=== PATIENT | male | born 1955 | race African-American/Black ===

== ENCOUNTER 2024-01-31 08:40 | Inpatient (IN) | payer OTHER ==
[~2024-01-31] VITALS: Ht 175.3 cm; Wt 71.4 kg
[~2024-01-31 08:40] MED LIST: AEC81 PO; ATOR10 PO; FERS325 PO; FOLI1 PO; GLIP5TAB15 PO; THIA100T78 PO
[2024-01-31 12:00] VITALS: BP 133/80; PULSE 68; RESP 16; O2SAT 97
[2024-01-31] MEDS ORDERED: COMPOUND IV MISC 1 EACH IVSOLN MISC PRN (14:00)
[2024-01-31] MEDS ORDERED: acetaMINOPHEN 650 MG/20.3 ML UDCUP JT PRN (14:00)
[2024-01-31 14:39] LABS: BASOPHILS # (AUTO) 0.04 K/uL (0.00-0.20); BASOPHILS % (AUTO) 0.4 % (0.0-5.0); EOSINOPHILS # (AUTO) 0.09 K/uL (0.00-0.70); HEMATOCRIT 30.9 % (42-54); IMMATURE GRANULOCYTE ABSOLUTE 0.04 K/uL (0-1); LYMPHOCYTES # (AUTO) 2.1 K/uL (1.0-4.8); LYMPHOCYTES % (AUTO) 22.5 % (21.0-51.0); MEAN CORPUSCULAR HEMOGLOBIN 34.2 pg (27.0-33.0); MEAN CORPUSCULAR HGB CONC 33.3 g/dL (32.0-36.0); MEAN CORPUSCULAR VOLUME 102.7 fL (79-99); MONOCYTES # (AUTO) 0.8 K/uL (0.1-1.0); MONOCYTES % (AUTO) 8.3 % (3.0-13.0); NEUTROPHILS # (AUTO) 6.4 K/uL (1.8-7.7); NEUTROPHILS % (AUTO) 67.4 % (40.0-77.0); PLATELET COUNT (AUTO) 196 K/uL (130-400); RED BLOOD CELL COUNT(AUTO) 3.01 MIL/uL (4.50-6.20); RED CELL DISTRIBUTION WIDTH 13.2 % (11.0-15.5); WHITE BLOOD COUNT (AUTO) 9.5 K/uL (4.8-10.8)
[2024-01-31 14:54] LABS: INR 1.01 (0.85-1.15); PROTHROMBIN TIME 10.9 SEC (9.6-11.6)
[2024-01-31 14:55] LABS: PARTIAL THROMBOPLASTIN TIME 22.3 SEC (26.3-35.5)
[2024-01-31 14:58] LABS: CREATININE 0.8 mg/dL (0.5-1.3); POTASSIUM 3.8 mmol/L (3.5-5.1)
[2024-01-31 15:02] LABS: ALBUMIN 2.7 g/dL (3.5-5.0); BILIRUBIN,TOTAL 0.4 mg/dL (0.2-1.0); MAGNESIUM 1.9 mg/dL (1.80-2.40)
[2024-01-31] MEDS: LACTATED RINGERS 1000ML 1,000 ML IV SCH (15:20)
[2024-01-31 16:00] VITALS: BP 151/83; PULSE 94; RESP 16
[2024-01-31] MEDS: INSULIN HUMULIN R 100 UNIT/ML 3ML SQ SCH (16:30)
[2024-01-31] MEDS ORDERED: DIATR MEGLU/DIATRIZOATE SODIUM 30 ML BOTTLE ONE (17:45)
[2024-01-31] MEDS: MEROPENEM 1 GM in 0.9%NACL 100ML 100 ML IVPB SCH (18:14)
[2024-01-31 20:00] VITALS: BP 117/89; PULSE 95; RESP 18
[2024-01-31 20:30] VITALS: O2SAT 98
[2024-01-31 23:53] VITALS: BP 132/56; PULSE 109; RESP 20
[2024-02-01] MEDS: INSULIN HUMULIN R 100 UNIT/ML 3ML SQ SCH
[2024-02-01] MEDS ORDERED: INSLAN SQ (00:31)
[2024-02-01] MEDS ORDERED: QUET25TA36 PO (00:31)
[2024-02-01] MEDS ORDERED: DOXA4TAB3 PO (00:31)
[2024-02-01] MEDS: ONDANSETRON 4MG INJ IVP PRN (03:10)
[2024-02-01 04:00] VITALS: BP 147/84; PULSE 97; RESP 22
[2024-02-01] MEDS: DEXTROSE 50%-WATER 50 ML DISP.SYRIN IV PRN (05:48)
[2024-02-01 05:53] LABS: BASOPHILS # (AUTO) 0.05 K/uL (0.00-0.20); BASOPHILS % (AUTO) 0.4 % (0.0-5.0); EOSINOPHILS # (AUTO) 0.09 K/uL (0.00-0.70); EOSINOPHILS % (AUTO) 0.8 % (0.0-8.0); HEMATOCRIT 31.3 % (42-54); IMMATURE GRANULOCYTE ABSOLUTE 0.04 K/uL (0-1); LYMPHOCYTES # (AUTO) 2.2 K/uL (1.0-4.8); LYMPHOCYTES % (AUTO) 18.2 % (21.0-51.0); MEAN CORPUSCULAR HEMOGLOBIN 34.8 pg (27.0-33.0); MEAN CORPUSCULAR HGB CONC 32.9 g/dL (32.0-36.0); MEAN CORPUSCULAR VOLUME 105.7 fL (79-99); MONOCYTES # (AUTO) 0.8 K/uL (0.1-1.0); MONOCYTES % (AUTO) 6.3 % (3.0-13.0); NEUTROPHILS # (AUTO) 8.8 K/uL (1.8-7.7); PLATELET COUNT (AUTO) 182 K/uL (130-400); RED BLOOD CELL COUNT(AUTO) 2.96 MIL/uL (4.50-6.20); RED CELL DISTRIBUTION WIDTH 13.2 % (11.0-15.5); WHITE BLOOD COUNT (AUTO) 11.9 K/uL (4.8-10.8)
[2024-02-01] MEDS ORDERED: GLUCAGON 1MG KIT 1 MG ML IM PRN (06:00)
[2024-02-01 06:19] LABS: CREATININE 0.9 mg/dL (0.5-1.3); MAGNESIUM 1.7 mg/dL (1.80-2.40); POTASSIUM 3.8 mmol/L (3.5-5.1)
[2024-02-01] MEDS: DEXTROSE 5%-WATER 1,000 ML IV SCH (06:41)
[2024-02-01 08:00] VITALS: BP 120/65; PULSE 85; RESP 18; O2SAT 98
[2024-02-01 10:17] LABS: HEMOGLOBIN A1C 7.5 % (4.0-6.0)
[2024-02-01 12:00] VITALS: BP 125/69; PULSE 94; RESP 18
[2024-02-01] MEDS: PANTOPRAZOLE 40 MG/VIAL IVP SCH (12:47)
[2024-02-01 16:00] VITALS: BP 127/71; PULSE 89; RESP 18
[2024-02-01 20:00] VITALS: BP 116/62; PULSE 85; RESP 20; O2SAT 100
[2024-02-01] MEDS: ENOXAPARIN SODIUM 30 MG/0.3 ML SQ SCH (21:24)
[2024-02-02] VITALS (7 sets, daily range): BP systolic 109–130; BP diastolic 64–74; PULSE 78–89; RESP 16–20; O2SAT 100
[2024-02-02 06:11] LABS: BASOPHILS # (AUTO) 0.04 K/uL (0.00-0.20); BASOPHILS % (AUTO) 0.4 % (0.0-5.0); EOSINOPHILS # (AUTO) 0.16 K/uL (0.00-0.70); EOSINOPHILS % (AUTO) 1.4 % (0.0-8.0); HEMATOCRIT 29.5 % (42-54); IMMATURE GRANULOCYTE ABSOLUTE 0.04 K/uL (0-1); LYMPHOCYTES # (AUTO) 2.7 K/uL (1.0-4.8); LYMPHOCYTES % (AUTO) 24.1 % (21.0-51.0); MEAN CORPUSCULAR HEMOGLOBIN 33.1 pg (27.0-33.0); MEAN CORPUSCULAR HGB CONC 31.5 g/dL (32.0-36.0); MONOCYTES % (AUTO) 8.8 % (3.0-13.0); NEUTROPHILS # (AUTO) 7.3 K/uL (1.8-7.7); NEUTROPHILS % (AUTO) 64.9 % (40.0-77.0); PLATELET COUNT (AUTO) 168 K/uL (130-400); RED BLOOD CELL COUNT(AUTO) 2.81 MIL/uL (4.50-6.20); RED CELL DISTRIBUTION WIDTH 13.2 % (11.0-15.5); WHITE BLOOD COUNT (AUTO) 11.2 K/uL (4.8-10.8)
[2024-02-02 06:30] LABS: ALBUMIN 2.5 g/dL (3.5-5.0); BILIRUBIN,TOTAL 0.6 mg/dL (0.2-1.0); CREATININE 0.8 mg/dL (0.5-1.3); MAGNESIUM 1.6 mg/dL (1.80-2.40); PHOSPHORUS 3.1 mg/dL (2.5-4.9); POTASSIUM 3.4 mmol/L (3.5-5.1); TOTAL PROTEIN, SERUM 6.3 g/dL (6.0-8.3)
[2024-02-02] MEDS: MAGNESIUM 2GM PREMIX 50ML 50 ML IV SCH (06:55)
[2024-02-03] VITALS (7 sets, daily range): BP systolic 106–128; BP diastolic 60–72; PULSE 73–81; RESP 16–20; O2SAT 99–100
[2024-02-03 00:58] LABS: BILIRUBIN,URINE SMALL mg/dL (NEGATIVE); GLUCOSE, URINE (UA) NEGATIVE (NEGATIVE); KETONES,URINE 5 mg/dL (NEGATIVE); LEUKOCYTE ESTERASE ,URINE TRACE Leu/uL (NEGATIVE); NITRATE,URINE NEGATIVE (NEGATIVE); OCCULT BLOOD,URINE LARGE (NEGATIVE); PROTEIN,URINE 30 mg/dL (NEGATIVE); UROBILINOGEN,URINE 0.2 mg/dL (0.2-1.0)
[2024-02-03 01:05] LABS: ADD UA MICROSCOPIC YES; APPEARANCE,URINE SLIGHTLY CLOUDY (CLEAR); COLOR,URINE AMBER (YELLOW)
[2024-02-03 01:12] LABS: RBC,URINE TNTC /HPF (0-1)
[2024-02-03 01:13] LABS: BACTERIA,URINE Rare /HPF (None Seen); SQUAMOUS EPITHELIAL CELL,UR Few /HPF (0-2)
[2024-02-03 05:19] LABS: BASOPHILS # (AUTO) 0.05 K/uL (0.00-0.20); BASOPHILS % (AUTO) 0.7 % (0.0-5.0); EOSINOPHILS # (AUTO) 0.23 K/uL (0.00-0.70); EOSINOPHILS % (AUTO) 3.3 % (0.0-8.0); HEMATOCRIT 26.1 % (42-54); IMMATURE GRANULOCYTE ABSOLUTE 0.01 K/uL (0-1); LYMPHOCYTES # (AUTO) 2.8 K/uL (1.0-4.8); MEAN CORPUSCULAR HEMOGLOBIN 33.6 pg (27.0-33.0); MONOCYTES # (AUTO) 0.5 K/uL (0.1-1.0); MONOCYTES % (AUTO) 7.6 % (3.0-13.0); NEUTROPHILS # (AUTO) 3.5 K/uL (1.8-7.7); NEUTROPHILS % (AUTO) 49.3 % (40.0-77.0); PLATELET COUNT (AUTO) 165 K/uL (130-400); RED BLOOD CELL COUNT(AUTO) 2.56 MIL/uL (4.50-6.20); RED CELL DISTRIBUTION WIDTH 12.9 % (11.0-15.5); WHITE BLOOD COUNT (AUTO) 7.1 K/uL (4.8-10.8)
[2024-02-03 05:38] LABS: ALBUMIN 2.2 g/dL (3.5-5.0); BILIRUBIN,TOTAL 0.7 mg/dL (0.2-1.0); CREATININE 0.7 mg/dL (0.5-1.3); POTASSIUM 3.1 mmol/L (3.5-5.1); TOTAL PROTEIN, SERUM 5.6 g/dL (6.0-8.3)
[2024-02-03] MEDS: POTASSIUM CHLORIDE 20MEQ/100ML 100 ML IV PRN (10:05)
[2024-02-03] MEDS ORDERED: DIATR MEGLU/DIATRIZOATE SODIUM 30 ML BOTTLE ONE (15:03)
[2024-02-04] VITALS (7 sets, daily range): BP systolic 100–120; BP diastolic 58–68; PULSE 52–97; RESP 18–20; O2SAT 95–99
[2024-02-04 04:24] LABS: BASOPHILS # (AUTO) 0.03 K/uL (0.00-0.20); BASOPHILS % (AUTO) 0.5 % (0.0-5.0); EOSINOPHILS # (AUTO) 0.18 K/uL (0.00-0.70); EOSINOPHILS % (AUTO) 2.8 % (0.0-8.0); HEMATOCRIT 26.3 % (42-54); IMMATURE GRANULOCYTE ABSOLUTE 0.02 K/uL (0-1); LYMPHOCYTES # (AUTO) 2.3 K/uL (1.0-4.8); LYMPHOCYTES % (AUTO) 36.2 % (21.0-51.0); MEAN CORPUSCULAR HEMOGLOBIN 34.3 pg (27.0-33.0); MEAN CORPUSCULAR HGB CONC 33.1 g/dL (32.0-36.0); MEAN CORPUSCULAR VOLUME 103.5 fL (79-99); MONOCYTES # (AUTO) 0.6 K/uL (0.1-1.0); NEUTROPHILS # (AUTO) 3.2 K/uL (1.8-7.7); NEUTROPHILS % (AUTO) 51.2 % (40.0-77.0); PLATELET COUNT (AUTO) 152 K/uL (130-400); RED BLOOD CELL COUNT(AUTO) 2.54 MIL/uL (4.50-6.20); WHITE BLOOD COUNT (AUTO) 6.3 K/uL (4.8-10.8)
[2024-02-04 04:45] LABS: CREATININE 0.8 mg/dL (0.5-1.3); PHOSPHORUS 2.4 mg/dL (2.5-4.9); POTASSIUM 3.4 mmol/L (3.5-5.1)
[2024-02-04 04:57] LABS: % IRON SATURATION 15.1 % (30-44)
[2024-02-04] MEDS: INSULIN HUMULIN R 100 UNIT/ML 3ML SQ SCH (20:40)
[2024-02-05] VITALS (9 sets, daily range): BP systolic 99–132; BP diastolic 60–77; PULSE 75–90; RESP 16–17; O2SAT 95–96
[2024-02-05 05:17] LABS: BASOPHILS # (AUTO) 0.03 K/uL (0.00-0.20); BASOPHILS % (AUTO) 0.4 % (0.0-5.0); EOSINOPHILS # (AUTO) 0.13 K/uL (0.00-0.70); EOSINOPHILS % (AUTO) 1.9 % (0.0-8.0); HEMATOCRIT 25.5 % (42-54); IMMATURE GRANULOCYTE ABSOLUTE 0.02 K/uL (0-1); LYMPHOCYTES # (AUTO) 2.1 K/uL (1.0-4.8); LYMPHOCYTES % (AUTO) 31.4 % (21.0-51.0); MEAN CORPUSCULAR HEMOGLOBIN 33.3 pg (27.0-33.0); MEAN CORPUSCULAR HGB CONC 32.9 g/dL (32.0-36.0); MEAN CORPUSCULAR VOLUME 101.2 fL (79-99); MONOCYTES # (AUTO) 0.6 K/uL (0.1-1.0); NEUTROPHILS # (AUTO) 3.8 K/uL (1.8-7.7); PLATELET COUNT (AUTO) 170 K/uL (130-400); RED BLOOD CELL COUNT(AUTO) 2.52 MIL/uL (4.50-6.20); WHITE BLOOD COUNT (AUTO) 6.8 K/uL (4.8-10.8)
[2024-02-05 05:36] LABS: ALBUMIN 2.1 g/dL (3.5-5.0); BILIRUBIN,TOTAL 0.6 mg/dL (0.2-1.0); CREATININE 0.8 mg/dL (0.5-1.3); MAGNESIUM 1.5 mg/dL (1.80-2.40); POTASSIUM 3.2 mmol/L (3.5-5.1); TOTAL PROTEIN, SERUM 5.4 g/dL (6.0-8.3)
[2024-02-05] MEDS ORDERED: MAGNESIUM 2GM PREMIX 50ML 50 ML IV SCH (10:00)
[2024-02-05] MEDS: KCL 20 MEQ ERTAB PO ONE (11:13)
[2024-02-05] MEDS: KCL 20 MEQ ERTAB PO PRN (22:09)
[2024-02-06] VITALS (7 sets, daily range): BP systolic 95–111; BP diastolic 50–71; PULSE 71–92; RESP 16–20; O2SAT 98–99
[2024-02-06] MEDS: POTASSIUM CHLORIDE 10% ELIXIR 20 MEQ/15 ML UDCUP PO PRN (00:25)
[2024-02-06 05:26] LABS: BASOPHILS # (AUTO) 0.05 K/uL (0.00-0.20); BASOPHILS % (AUTO) 0.7 % (0.0-5.0); EOSINOPHILS # (AUTO) 0.12 K/uL (0.00-0.70); EOSINOPHILS % (AUTO) 1.8 % (0.0-8.0); IMMATURE GRANULOCYTE ABSOLUTE 0.02 K/uL (0-1); LYMPHOCYTES # (AUTO) 2.4 K/uL (1.0-4.8); LYMPHOCYTES % (AUTO) 34.5 % (21.0-51.0); MEAN CORPUSCULAR VOLUME 103.1 fL (79-99); MONOCYTES # (AUTO) 0.6 K/uL (0.1-1.0); MONOCYTES % (AUTO) 8.6 % (3.0-13.0); NEUTROPHILS # (AUTO) 3.7 K/uL (1.8-7.7); NEUTROPHILS % (AUTO) 54.1 % (40.0-77.0); PLATELET COUNT (AUTO) 169 K/uL (130-400); RED BLOOD CELL COUNT(AUTO) 2.62 MIL/uL (4.50-6.20); RED CELL DISTRIBUTION WIDTH 13.2 % (11.0-15.5); WHITE BLOOD COUNT (AUTO) 6.9 K/uL (4.8-10.8)
[2024-02-06 05:38] LABS: ALBUMIN 2.1 g/dL (3.5-5.0); BILIRUBIN,TOTAL 0.3 mg/dL (0.2-1.0); CREATININE 0.8 mg/dL (0.5-1.3); MAGNESIUM 1.9 mg/dL (1.80-2.40); PHOSPHORUS 1.5 mg/dL (2.5-4.9); POTASSIUM 4.1 mmol/L (3.5-5.1); TOTAL PROTEIN, SERUM 5.6 g/dL (6.0-8.3)
[2024-02-06] MEDS ORDERED: INSULIN GLARGINE 100 UNITS/ML 10 ML VIAL SQ SCH (17:00)
[2024-02-06] MEDS: ATORVASTATIN 20 MG TABLET PO SCH (20:36)
[2024-02-06] MEDS: QUETIAPINE FUMARATE 25 MG TAB PO SCH (20:36)
[2024-02-06] MEDS: DOXAZOSIN MESYLATE 2 MG TABLET PO SCH (20:37)
[2024-02-06] MEDS ORDERED: NON-FORMULARY MEDICATION 1 EACH (Doxazosin Mesylate 4 MG) PO SCH (21:00)
[2024-02-07] VITALS (8 sets, daily range): BP systolic 97–134; BP diastolic 53–75; PULSE 79–101; RESP 16–19; O2SAT 96
[2024-02-07 05:20] LABS: BASOPHILS # (AUTO) 0.03 K/uL (0.00-0.20); BASOPHILS % (AUTO) 0.4 % (0.0-5.0); EOSINOPHILS % (AUTO) 2.8 % (0.0-8.0); HEMATOCRIT 26.2 % (42-54); IMMATURE GRANULOCYTE ABSOLUTE 0.02 K/uL (0-1); LYMPHOCYTES # (AUTO) 2.6 K/uL (1.0-4.8); LYMPHOCYTES % (AUTO) 36.6 % (21.0-51.0); MEAN CORPUSCULAR HEMOGLOBIN 33.7 pg (27.0-33.0); MEAN CORPUSCULAR HGB CONC 33.6 g/dL (32.0-36.0); MEAN CORPUSCULAR VOLUME 100.4 fL (79-99); MONOCYTES # (AUTO) 0.6 K/uL (0.1-1.0); MONOCYTES % (AUTO) 8.4 % (3.0-13.0); NEUTROPHILS # (AUTO) 3.6 K/uL (1.8-7.7); NEUTROPHILS % (AUTO) 51.5 % (40.0-77.0); PLATELET COUNT (AUTO) 174 K/uL (130-400); RED BLOOD CELL COUNT(AUTO) 2.61 MIL/uL (4.50-6.20); RED CELL DISTRIBUTION WIDTH 13.2 % (11.0-15.5)
[2024-02-07 05:42] LABS: ALBUMIN 2.2 g/dL (3.5-5.0); BILIRUBIN,TOTAL 0.3 mg/dL (0.2-1.0); CREATININE 0.7 mg/dL (0.5-1.3); MAGNESIUM 1.6 mg/dL (1.80-2.40); POTASSIUM 3.9 mmol/L (3.5-5.1); TOTAL PROTEIN, SERUM 5.6 g/dL (6.0-8.3)
[2024-02-07] MEDS ORDERED: NON-FORMULARY MEDICATION 1 EACH (Ferrous Sulfate 325 MG) PO SCH (09:00)
[2024-02-07] MEDS ORDERED: MAGNESIUM 2GM PREMIX 50ML 50 ML IV SCH (09:30)
[2024-02-07] MEDS: GLIPIZIDE 5 MG TABLET PO SCH (09:51)
[2024-02-07] MEDS: THIAMINE HCL 100 MG TABLET PO SCH (09:51)
[2024-02-07] MEDS: FOLIC ACID 1 MG TABLET PO SCH (09:51)
[2024-02-07] MEDS: FERROUS SULFATE 325 MG TABLET.DR PO SCH (09:51)
[2024-02-07] MEDS ORDERED: METOCLOPRAMIDE 10 MG/2 ML VIAL IVP PRN (11:30)
[2024-02-07] MEDS: 0.9%NACL 1000ML 1,000 ML IV SCH (13:48)
[2024-02-08] VITALS (9 sets, daily range): BP systolic 92–134; BP diastolic 54–69; PULSE 82–116; RESP 16–20; TEMP 100.1; O2SAT 96–98
[2024-02-08 05:25] LABS: BASOPHILS # (AUTO) 0.03 K/uL (0.00-0.20); BASOPHILS % (AUTO) 0.3 % (0.0-5.0); EOSINOPHILS # (AUTO) 0.02 K/uL (0.00-0.70); EOSINOPHILS % (AUTO) 0.2 % (0.0-8.0); HEMATOCRIT 26.9 % (42-54); IMMATURE GRANULOCYTE ABSOLUTE 0.04 K/uL (0-1); LYMPHOCYTES # (AUTO) 0.8 K/uL (1.0-4.8); LYMPHOCYTES % (AUTO) 7.7 % (21.0-51.0); MEAN CORPUSCULAR HEMOGLOBIN 33.7 pg (27.0-33.0); MEAN CORPUSCULAR HGB CONC 33.8 g/dL (32.0-36.0); MEAN CORPUSCULAR VOLUME 99.6 fL (79-99); MONOCYTES # (AUTO) 0.5 K/uL (0.1-1.0); MONOCYTES % (AUTO) 5.1 % (3.0-13.0); NEUTROPHILS # (AUTO) 8.9 K/uL (1.8-7.7); NEUTROPHILS % (AUTO) 86.3 % (40.0-77.0); PLATELET COUNT (AUTO) 178 K/uL (130-400); RED CELL DISTRIBUTION WIDTH 13.2 % (11.0-15.5); WHITE BLOOD COUNT (AUTO) 10.3 K/uL (4.8-10.8)
[2024-02-08 05:43] LABS: ALBUMIN 2.3 g/dL (3.5-5.0); BILIRUBIN,TOTAL 0.6 mg/dL (0.2-1.0); CREATININE 0.9 mg/dL (0.5-1.3); MAGNESIUM 1.4 mg/dL (1.80-2.40); PHOSPHORUS 1.3 mg/dL (2.5-4.9); POTASSIUM 3.7 mmol/L (3.5-5.1); TOTAL PROTEIN, SERUM 5.8 g/dL (6.0-8.3)
[2024-02-08] MEDS: acetaMINOPHEN 325 MG TAB ONE (08:16)
[2024-02-08] MEDS: acetaMINOPHEN 325 MG TAB PO PRN (08:16)
[2024-02-08] MEDS ORDERED: KETOROLAC 15MG/ML VIAL (15MG/ML) IV PRN (08:30)
[2024-02-08] MEDS ORDERED: acetaMINOPHEN 325 MG TAB PO PRN (08:30)
[2024-02-08 14:37] LABS: COVID19 (SARS ANTIGEN RAPID) PRESUMPTIVE NEGATIVE (NEGATIVE); INFLUENZA TYPE A Negative For Type A (NEGATIVE); INFLUENZA TYPE B Negative For Type B (NEGATIVE)
[2024-02-08 17:45] LABS: APPEARANCE,URINE CLEAR (CLEAR); BILIRUBIN,URINE NEGATIVE (NEGATIVE); COLOR,URINE LIGHT-YELLOW (YELLOW); GLUCOSE, URINE (UA) NEGATIVE (NEGATIVE); KETONES,URINE NEGATIVE (NEGATIVE); LEUKOCYTE ESTERASE ,URINE NEGATIVE Leu/uL (NEGATIVE); NITRATE,URINE NEGATIVE (NEGATIVE); OCCULT BLOOD,URINE NEGATIVE (NEGATIVE); PROTEIN,URINE NEGATIVE (NEGATIVE); UROBILINOGEN,URINE 0.2 mg/dL (0.2-1.0)
[2024-02-08 17:56] LABS: ADD UA MICROSCOPIC NO
[2024-02-09] VITALS (8 sets, daily range): BP systolic 100–122; BP diastolic 57–70; PULSE 79–93; RESP 17–18; O2SAT 96–97
[2024-02-09 05:01] LABS: HEMATOCRIT 23.3 % (42-54); MEAN CORPUSCULAR HEMOGLOBIN 32.9 pg (27.0-33.0); MEAN CORPUSCULAR VOLUME 99.6 fL (79-99); PLATELET COUNT (AUTO) 158 K/uL (130-400); RED BLOOD CELL COUNT(AUTO) 2.34 MIL/uL (4.50-6.20); RED CELL DISTRIBUTION WIDTH 13.2 % (11.0-15.5); WHITE BLOOD COUNT (AUTO) 9.9 K/uL (4.8-10.8)
[2024-02-09 05:10] LABS: CREATININE 0.7 mg/dL (0.5-1.3); MAGNESIUM 1.7 mg/dL (1.80-2.40); POTASSIUM 3.9 mmol/L (3.5-5.1)
[2024-02-09 06:10] LABS: BAND NEUTROPHILS % (MANUAL) 3 % (0-2); EOSINOPHILS % (MANUAL) 1 % (1-6); LYMPHOCYTES % (MANUAL) 11 % (22-44); MAN.DIFF COMMENT-IMPRESSION MANUAL DIFFERENTIAL; MONOCYTES % (MANUAL) 6 % (2-9); SEGMENTED NEUTROPHILS % 79 % (40-70); TOTAL CELLS COUNTED 100
[2024-02-09 06:11] LABS: PLATELET MORPHOLOGY COMMENT ADEQUATE; WBC MORPHOLOGY VACUOLATION 1+
[2024-02-10] VITALS: BP 121/68; PULSE 85; RESP 18
[2024-02-10 04:00] VITALS: BP 112/70; PULSE 91; RESP 18
[2024-02-10 06:20] LABS: HEMATOCRIT 23.7 % (42-54); MEAN CORPUSCULAR HEMOGLOBIN 32.9 pg (27.0-33.0); MEAN CORPUSCULAR HGB CONC 32.9 g/dL (32.0-36.0); RED BLOOD CELL COUNT(AUTO) 2.37 MIL/uL (4.50-6.20); RED CELL DISTRIBUTION WIDTH 13.4 % (11.0-15.5); WHITE BLOOD COUNT (AUTO) 9.1 K/uL (4.8-10.8)
[2024-02-10 06:36] LABS: CREATININE 0.7 mg/dL (0.5-1.3); MAGNESIUM 1.5 mg/dL (1.80-2.40); PHOSPHORUS 2.1 mg/dL (2.5-4.9); POTASSIUM 3.7 mmol/L (3.5-5.1)
[2024-02-10 08:00] VITALS: BP 108/54; PULSE 87; RESP 18
[2024-02-10 08:10] VITALS: O2SAT 98
[2024-02-10 12:00] VITALS: BP 93/55; PULSE 55; RESP 18
[2024-02-10 20:00] VITALS: BP 107/60; PULSE 78; RESP 18
== END 2024-02-10 20:51 | DRG 393 ==
LOC: 3CH 08:40 → 3BH 02-01 18:25
PROVIDERS: ADMIT Internal Medicine; ATTEND Internal Medicine
DX: K94.23 Gastrostomy malfunction (principal); K65.1 Peritoneal abscess; E46 Unspecified protein-calorie malnutrition; E87.0 Hyperosmolality and hypernatremia; N17.9 Acute kidney failure, unspecified; E87.1 Hypo-osmolality and hyponatremia; N39.0 Urinary tract infection, site not specified; K21.9 Gastro-esophageal reflux disease without esophagitis; D53.9 Nutritional anemia, unspecified; K29.70 Gastritis, unspecified, without bleeding; I12.9 Hypertensive chronic kidney disease with stage 1 through stage 4 chronic kidney disease, or unspecified chronic kidney disease; E11.43 Type 2 diabetes mellitus with diabetic autonomic (poly)neuropathy; K44.9 Diaphragmatic hernia without obstruction or gangrene; E11.22 Type 2 diabetes mellitus with diabetic chronic kidney disease; E78.5 Hyperlipidemia, unspecified; E83.42 Hypomagnesemia; F03.90 Unspecified dementia, unspecified severity, without behavioral disturbance, psychotic disturbance, mood disturbance, and anxiety; E86.0 Dehydration; N40.0 Benign prostatic hyperplasia without lower urinary tract symptoms; Z79.2 Long term (current) use of antibiotics; Z86.73 Personal history of transient ischemic attack (TIA), and cerebral infarction without residual deficits; Z87.891 Personal history of nicotine dependence; Z68.23 Body mass index [BMI] 23.0-23.9, adult
CPT/HCPCS: 36415; 74018; 74176; 80048; 80053; 81001; 81003; 82306; 82607; 82948; 83036; 83540; 83550; 83735; 84100; 84145; 84425; 85025; 85027; 85610; 85730; 86140; 87040; 87086; 87426; 87804; G0378; J1650; J1815; J2185; J2405; J2470; J3475; J3480; J7070; Q9963